=== PATIENT | female | born 1990 | race Caucasian/White ===

== ENCOUNTER → 2016-12-10 | Outpatient (CLI) | payer OTHER ==
[~2016-12-10] MED LIST: ABILIFY15 MG PO; ALBUTEROL0.09 MG/A2 IH; AMOXIL400 MG/5 M PO; AMPHETAMINE SAL20 MG PO; AUGMENTIN 875875 MG PO; BACTRIM DS 8001 TA1 PO; BIAXIN500 MG PO; BUSPIRONE HCL10 MG PO; BUSPIRONE10 MG PO; CHEWABLE VITE1 CTB PO; CIPRO500 MG PO; CLARITIN10 MG PO; CLINDAMYCIN HC300 MG PO; CORTISPORIN 1%-10 M1 OT; DARVOCET N 1001 TAB PO; DIAZEPAM10 MG PO; DOXYCYCLINE MO100 MG PO; DOXYCYCLINE100 M2 PO; ELIMITE 5%60 GM PO; FLEXERIL10 MG PO; FLINTSTONES1 CTB PO; FLONASE 0.05% 121 EA NAS; GOOD NEIGHBOR150 MG PO; HYDROCODONE BIT1 T11 PO; KEFLEX250 MG/5 M PO; KEFLEX500 MG PO; LEXAPRO5 M1 PO; MEDROL DOSEPAK4 MG PO; METHERGINE0.2 MG PO; MUCINEX DM 30 M1 TE1 PO; NAPROSYN500 MG PO; OMEPRAZOLE DR20 MG PO; OMEPRAZOLE20 MG PO; OVRAL-21 50 MCG1 TAB PO; PAROXETINE HCL10 MG PO; PENICILLIN-VK500 M1 PO; PEPCID20 MG PO; PERCOCET 325 MG1 TA2 PO; PERCOCET 325 MG1 TA5 PO; PHENERGAN W/ DE30 ML PO; PHENERGAN W/DM120 ML PO; PHENERGAN25 M1 PO; PRENATAL 191 CTB PO; PRILOSEC20 MG PO; PROAIR HFA0.09 MG/AC IH; PROTONIX40 MG PO; PROVENTIL0.09 MG/AC IH; Percocet 325 MG1 TAB PO; REGLAN10 MG PO; SINGULAIR10 MG PO; TRAMADOL HCL50 MG PO; TRAMADOL50 MG PO; TYLENOL CH160 MG/51 PO; ULTRAM50 MG PO; VICODIN 5/500 505 MG PO; VITAMINS W/IRON1 CT1 PO; XANAX0.25 MG PO; XANAX0.5 MG; ZANTAC 150150 MG PO; ZANTAC150 MG PO; ZITHROMAX Z PA250 MG PO; ZITHROMAX250 MG PO; Zithromax200 MG/5 M PO; Zofran4 MG PO
== END | disposition home or self-care (01) ==
LOC: LAB 15:13
DX: Z33.1 Pregnant state, incidental (principal)

== ENCOUNTER 2017-12-29 20:10 | Emergency (ER) | payer OTHER ==
[~2017-12-29] VITALS: Ht 154.9 cm; Wt 145.1 kg
== END 2017-12-29 20:44 | disposition home or self-care (01) ==
LOC: ED 20:10
DX: K08.89 Other specified disorders of teeth and supporting structures (principal); Z88.8 Allergy status to other drugs, medicaments and biological substances

== ENCOUNTER 2018-08-10 21:31 | Emergency (ER) | payer OTHER ==
[~2018-08-10] VITALS: Ht 154.9 cm; Wt 147.9 kg
[2018-08-10] MEDS ORDERED: IRON325 M1 PO (21:56)
[2018-08-10] MEDS ORDERED: METFORMIN HYDR500 MG PO (21:57)
[2018-08-10] MEDS ORDERED: OMEPRAZOLE D/R20 MG PO (21:57)
[2018-08-10] MEDS ORDERED: VENTOLIN 02.5 MG/3 M INH (21:57)
[2018-08-10] MEDS ORDERED: VITAMIN D350000 UNIT PO (21:57)
[2018-08-10] MEDS ORDERED: GOOD NEIGHBOR L10 MG PO (21:58)
[2018-08-10] MEDS ORDERED: PROVENTIL HFA6.7 GM INH (21:58)
== END 2018-08-10 23:01 | disposition home or self-care (01) ==
LOC: ED 21:31
DX: S81.812A Laceration without foreign body, left lower leg, initial encounter (principal); F17.200 Nicotine dependence, unspecified, uncomplicated; Z88.8 Allergy status to other drugs, medicaments and biological substances; Z91.048 Other nonmedicinal substance allergy status; Z88.6 Allergy status to analgesic agent; Z88.5 Allergy status to narcotic agent; Z79.899 Other long term (current) drug therapy; Z79.84 Long term (current) use of oral hypoglycemic drugs; W25.XXXA Contact with sharp glass, initial encounter; Y93.89 Activity, other specified; Y92.89 Other specified places as the place of occurrence of the external cause; Y99.8 Other external cause status

== ENCOUNTER 2018-10-11 12:54 | Emergency (ER) | payer OTHER ==
[~2018-10-11] VITALS: Ht 167.6 cm; Wt 145.1 kg
[~2018-10-11 12:54] MED LIST changes: +GOOD NEIGHBOR L10 MG PO; +IRON325 M1 PO; +METFORMIN HYDR500 MG PO; +OMEPRAZOLE D/R20 MG PO; +PROVENTIL HFA6.7 GM INH; +VENTOLIN 02.5 MG/3 M INH; +VITAMIN D350000 UNIT PO
[2018-10-11] MEDS ORDERED: AMOXICILLIN500 M2 PO (13:41)
[2018-10-11] MEDS ORDERED: FLONASE ALLERG9.9 ML NAS (13:41)
== END 2018-10-11 13:55 | disposition home or self-care (01) ==
LOC: ED 12:54
DX: J02.9 Acute pharyngitis, unspecified (principal); J01.90 Acute sinusitis, unspecified; H92.03 Otalgia, bilateral; Z88.8 Allergy status to other drugs, medicaments and biological substances; Z88.6 Allergy status to analgesic agent; Z79.899 Other long term (current) drug therapy

== ENCOUNTER → 2019-04-09 | Outpatient (CLI) | payer OTHER ==
[~2019-04-09] MED LIST changes: +AMOXICILLIN500 M2 PO; +FLONASE ALLERG9.9 ML NAS
[2019-04-09 09:44] LABS: BASO # 0.1 10*3/uL (0.0-0.1); BASO % 0.5 % (0.0-1.0); EOS # 0.3 10*3/uL (0.0-0.4); EOS % 2.4 % (1.0-4.0); HEMOGLOBIN 12.2 g/dl (12.0-16.0); LYMPH # 2.7 10*3/uL (1.3-4.4); MEAN CELL VOLUME 85.8 fl (81.0-99.0); MEAN CORPUSCULAR HGB 26.2 pg (27.0-31.0); MEAN CORPUSCULAR HGB CONC 30.5 g/dl (33.0-37.0); MEAN PLATELET VOLUME 9.4 fl (9.6-12.3); MONO # 0.8 10*3/uL (0.1-1.0); MONO % 7.1 % (3.0-9.0); NEUT % 64.6 % (47.0-73.0); PLATELET COUNT AUTOMATED 354 10*3/uL (130-400); RED BLOOD COUNT 4.66 10*6/uL (4.10-5.10); RED CELL DISTRI WIDTH 15.8 % (0-14.5); WHITE BLOOD COUNT 10.8 10*3/uL (4.8-10.8)
[2019-04-09 10:23] LABS: ALBUMIN 3.1 gm/dl (3.1-4.5); BUN 12 mg/dl (7-24); CHLORIDE 109 mmol/L (98-107); CHOLESTEROL 171 mg/dL (<200); POTASSIUM 4.1 mmol/L (3.5-5.1); SGOT/AST 21 IU/L (3-35); SGPT/ALT 33 U/L (12-78); SODIUM 140 mmol/L (136-145); TOTAL PROTEIN 7.5 gm/dL (6.4-8.2)
[2019-04-09 10:30] LABS: ALKALINE PHOSPHATASE 70 U/L (45-117); HDL CHOLESTEROL 38 mg/dl (40-60); IRON 57 ug/dL (50-170); LDL CHOLESTEROL 109 mg/dL (9-159); TOTAL IRON BINDING CAPACITY 346 ug/dl (250-450); TRIGLYCERIDES 120 mg/dl (<150); VLDL CHOLESTEROL 24 mg/dL (6-40)
[2019-04-09 10:50] LABS: PTH INTACT 79.7 pg/mL (18.5-88.0)
[2019-04-12 06:32] LABS: TESTOSTERONE FREE, (DIRECT) 4.2 pg/mL (0.0-4.2)
== END | disposition home or self-care (01) ==
LOC: LAB 09:16
PROVIDERS: Nurse Practitioner Family
DX: M25.511 Pain in right shoulder (principal); E55.9 Vitamin D deficiency, unspecified; E88.81 Metabolic syndrome and other insulin resistance; E28.2 Polycystic ovarian syndrome; D50.8 Other iron deficiency anemias; I10 Essential (primary) hypertension

== ENCOUNTER → 2019-04-15 | Outpatient (CLI) | payer OTHER | END | disposition home or self-care (01) | LOC: RAD 14:08 | DX: M54.5 Low back pain (principal) ==

== ENCOUNTER → 2019-08-19 | Outpatient (CLI) | payer OTHER | END | disposition home or self-care (01) | LOC: US 09:30 | DX: N92.1 Excessive and frequent menstruation with irregular cycle (principal) ==

== ENCOUNTER → 2019-10-20 | Outpatient (CLI) | payer OTHER ==
[2019-10-20 12:06] LABS: BASO % 0.2 % (0.0-1.0); EOS # 0.4 10*3/uL (0.0-0.4); EOS % 3.2 % (1.0-4.0); HEMATOCRIT 36.4 % (37.0-47.0); LYMPH # 3.3 10*3/uL (1.3-4.4); LYMPH % 26.2 % (27.0-41.0); MEAN CELL VOLUME 79.1 fl (81.0-99.0); MEAN CORPUSCULAR HGB 22.8 pg (27.0-31.0); MEAN CORPUSCULAR HGB CONC 28.8 g/dl (33.0-37.0); MEAN PLATELET VOLUME 8.7 fl (9.6-12.3); MONO # 0.9 10*3/uL (0.1-1.0); MONO % 7.1 % (3.0-9.0); NEUT # 7.8 10*3/uL (2.3-7.9); NEUT % 62.7 % (47.0-73.0); PLATELET COUNT AUTOMATED 396 10*3/uL (130-400); RED CELL DISTRI WIDTH 16.5 % (0-14.5); WHITE BLOOD COUNT 12.5 10*3/uL (4.8-10.8)
[2019-10-20 12:36] LABS: ALKALINE PHOSPHATASE 66 U/L (45-117); BUN 9 mg/dl (7-24); CHLORIDE 109 mmol/L (98-107); CREATININE 0.73 mg/dL (0.55-1.02); HDL CHOLESTEROL 37 mg/dl (40-60); IRON 113 ug/dL (50-170); POTASSIUM 4.1 mmol/L (3.5-5.1); SGOT/AST 19 IU/L (3-35); SGPT/ALT 24 U/L (12-78); SODIUM 140 mmol/L (136-145); TOTAL IRON BINDING CAPACITY 352 ug/dl (250-450); TOTAL PROTEIN 7.3 gm/dL (6.4-8.2); TRIGLYCERIDES 110 mg/dl (<150); VLDL CHOLESTEROL 22 mg/dL (6-40)
[2019-10-20 12:41] LABS: CHOLESTEROL 176 mg/dL (<200); LDL CHOLESTEROL 117 mg/dL (9-159)
[2019-10-20 13:33] LABS: FERRITIN 9.2 ng/mL (10.0-291.0); VITAMIN D, 25-HYDROXY 36.6 ng/mL (30-100)
[2019-10-22 11:09] LABS: TESTOSTERONE FREE, (DIRECT) 2.4 pg/mL (0.0-4.2)
== END | disposition home or self-care (01) ==
LOC: LAB 11:38
PROVIDERS: Nurse Practitioner Family
DX: K21.9 Gastro-esophageal reflux disease without esophagitis (principal); I10 Essential (primary) hypertension; E55.9 Vitamin D deficiency, unspecified; G47.61 Periodic limb movement disorder; E88.81 Metabolic syndrome and other insulin resistance; D50.8 Other iron deficiency anemias; N93.8 Other specified abnormal uterine and vaginal bleeding; E78.1 Pure hyperglyceridemia; E66.01 Morbid (severe) obesity due to excess calories; C92.10 Chronic myeloid leukemia, BCR/ABL-positive, not having achieved remission; Z68.44 Body mass index [BMI] 60.0-69.9, adult

== ENCOUNTER 2020-09-08 16:11 | Emergency (ER) | payer OTHER ==
[~2020-09-08] VITALS: Ht 154.9 cm; Wt 145.1 kg
== END 2020-09-08 22:43 | disposition home or self-care (01) ==
LOC: ED 16:11
DX: S63.92XA Sprain of unspecified part of left wrist and hand, initial encounter (principal); Z79.899 Other long term (current) drug therapy; Z88.8 Allergy status to other drugs, medicaments and biological substances; X58.XXXA Exposure to other specified factors, initial encounter; Y93.89 Activity, other specified; Y92.89 Other specified places as the place of occurrence of the external cause; Y99.8 Other external cause status

== ENCOUNTER 2020-12-13 20:13 | Emergency (ER) | payer OTHER ==
[~2020-12-13] VITALS: Ht 154.9 cm; Wt 158.8 kg
== END 2020-12-13 22:15 | disposition home or self-care (01) ==
LOC: ED 20:13
DX: F41.0 Panic disorder [episodic paroxysmal anxiety] (principal); Z88.6 Allergy status to analgesic agent; Z88.8 Allergy status to other drugs, medicaments and biological substances; Z88.5 Allergy status to narcotic agent; Z79.2 Long term (current) use of antibiotics; Z79.899 Other long term (current) drug therapy; Z98.890 Other specified postprocedural states

== ENCOUNTER 2021-04-03 08:16 | Emergency (ER) | payer OTHER ==
[~2021-04-03] VITALS: Ht 154.9 cm; Wt 145.1 kg
[2021-04-03] MEDS ORDERED: PAXIL20 M1 PO (08:27)
[2021-04-03] MEDS ORDERED: ADDERALL 20 MG20 MG PO (08:27)
[2021-04-03] MEDS ORDERED: APRESOLINE25 MG PO (08:28)
[2021-04-03] MEDS ORDERED: HYDROCODONE-AC1 EAC1 PO (11:15)
[2021-04-03] MEDS ORDERED: CLEOCIN HCL150 MG PO (11:15)
== END 2021-04-03 13:17 | disposition home or self-care (01) ==
LOC: ED 08:16
DX: K08.89 Other specified disorders of teeth and supporting structures (principal); Z88.8 Allergy status to other drugs, medicaments and biological substances; Z79.899 Other long term (current) drug therapy

== ENCOUNTER 2021-10-05 15:16 | Emergency (ER) | payer OTHER ==
[~2021-10-05] VITALS: Ht 154.9 cm; Wt 146.5 kg
[~2021-10-05 15:16] MED LIST changes: +ADDERALL 20 MG20 MG PO; +APRESOLINE25 MG PO; +CLEOCIN HCL150 MG PO; +HYDROCODONE-AC1 EAC1 PO; +PAXIL20 M1 PO
[2021-10-05] MEDS ORDERED: METHOCARBAMOL750 M1 PO (21:22)
[2021-10-05] MEDS ORDERED: NAPROXEN250 MG PO (21:22)
== END 2021-10-05 21:29 | disposition home or self-care (01) ==
LOC: ED 15:16
DX: R51.9 Headache, unspecified (principal); R07.81 Pleurodynia; I10 Essential (primary) hypertension; F17.200 Nicotine dependence, unspecified, uncomplicated; Z88.8 Allergy status to other drugs, medicaments and biological substances; Z88.6 Allergy status to analgesic agent; Z88.1 Allergy status to other antibiotic agents; Z79.899 Other long term (current) drug therapy; Z98.890 Other specified postprocedural states; V43.52XA Car driver injured in collision with other type car in traffic accident, initial encounter; Y93.89 Activity, other specified; Y92.89 Other specified places as the place of occurrence of the external cause; Y99.8 Other external cause status

== ENCOUNTER 2022-02-11 11:47 | Emergency (ER) | payer OTHER ==
[~2022-02-11] VITALS: Ht 154.9 cm; Wt 151.0 kg
[~2022-02-11 11:47] MED LIST changes: +METHOCARBAMOL750 M1 PO; +NAPROXEN250 MG PO
[2022-02-11 12:29] LABS: BILIRUBIN Negative (Negative); BLOOD 3+ (Negative); CLARITY Clear (Clear); COLOR Yellow (Yellow); GLUCOSE Negative (Negative); KETONE Negative (Negative); LEUKO ESTERASE Trace (Negative); NITRITE Negative (Negative); PH 5.5 (4.5-8.0); UROBILINOGEN 0.2 E.U./dl (0.0-1.0)
[2022-02-11 12:29] LABS: BASO # 0.1 10*3/uL (0.0-0.1); BASO % 0.3 % (0.0-1.0); EOS # 0.1 10*3/uL (0.0-0.4); EOS % 0.6 % (1.0-4.0); HEMATOCRIT 42.5 % (37.0-47.0); LYMPH # 3.8 10*3/uL (1.3-4.4); LYMPH % 22.6 % (27.0-41.0); MEAN CELL VOLUME 83.3 fl (81.0-99.0); MEAN CORPUSCULAR HGB 25.9 pg (27.0-31.0); MEAN CORPUSCULAR HGB CONC 31.1 g/dl (33.0-37.0); MEAN PLATELET VOLUME 8.8 fl (9.6-12.3); MONO # 1.2 10*3/uL (0.1-1.0); MONO % 7.1 % (3.0-9.0); NEUT # 11.4 10*3/uL (2.3-7.9); NEUT % 68.9 % (47.0-73.0); PLATELET COUNT AUTOMATED 402 10*3/uL (130-400); RED CELL DISTRI WIDTH 16.7 % (0-14.5); WHITE BLOOD COUNT 16.6 10*3/uL (4.8-10.8)
[2022-02-11 12:37] LABS: RBC TNTC rbc/hpf (0-2)
[2022-02-11 12:38] LABS: BACTERIA 2+
[2022-02-11 12:48] LABS: ALKALINE PHOSPHATASE 79 U/L (45-117); BUN 8 mg/dl (7-24); CHLORIDE 107 mmol/L (98-107); POTASSIUM 3.9 mmol/L (3.5-5.1); SGPT/ALT 27 U/L (12-78); SODIUM 138 mmol/L (136-145); TOTAL PROTEIN 8.2 gm/dL (6.4-8.2)
[2022-02-11] MEDS ORDERED: CIPRO500 MG PO (14:49)
== END 2022-02-11 14:52 | disposition home or self-care (01) ==
LOC: ED 11:47
PROVIDERS: Physician Assistant
DX: N12 Tubulo-interstitial nephritis, not specified as acute or chronic (principal); Z88.8 Allergy status to other drugs, medicaments and biological substances; Z79.899 Other long term (current) drug therapy; Z98.890 Other specified postprocedural states

== ENCOUNTER → 2022-06-19 | Outpatient (CLI) | payer OTHER | END | disposition home or self-care (01) | LOC: RAD 10:30 | PROVIDERS: ATTEND Nurse Practitioner Family | DX: R05.9 Cough, unspecified (principal); R06.2 Wheezing ==

== ENCOUNTER → 2022-11-27 | Outpatient (CLI) | payer OTHER | END | disposition home or self-care (01) | LOC: RAD 14:37 | PROVIDERS: ATTEND Nurse Practitioner Family | DX: M79.641 Pain in right hand (principal); M79.89 Other specified soft tissue disorders ==

== ENCOUNTER 2023-02-05 17:49 | Emergency (ER) | payer OTHER ==
[~2023-02-05] VITALS: Ht 154.9 cm; Wt 142.9 kg
[2023-02-05] MEDS ORDERED: AMOX-CLAV 875-1 EACH PO (19:25)
== END 2023-02-05 20:07 | disposition home or self-care (01) ==
LOC: ED 17:49
DX: K04.7 Periapical abscess without sinus (principal); R11.0 Nausea; R19.7 Diarrhea, unspecified; J02.9 Acute pharyngitis, unspecified; R09.81 Nasal congestion; R51.9 Headache, unspecified; K21.9 Gastro-esophageal reflux disease without esophagitis; J45.909 Unspecified asthma, uncomplicated; F41.9 Anxiety disorder, unspecified; F31.9 Bipolar disorder, unspecified; Z88.8 Allergy status to other drugs, medicaments and biological substances; Z98.890 Other specified postprocedural states; F17.290 Nicotine dependence, other tobacco product, uncomplicated

== ENCOUNTER → 2023-04-23 | Outpatient (CLI) | payer OTHER ==
[~2023-04-23] MED LIST changes: +AMOX-CLAV 875-1 EACH PO
[2023-04-23 10:14] LABS: BASO % 0.4 % (0.0-1.0); EOS # 0.2 10*3/uL (0.0-0.4); EOS % 1.9 % (1.0-4.0); HEMATOCRIT 45.5 % (37.0-47.0); LYMPH # 2.6 10*3/uL (1.3-4.4); LYMPH % 25.7 % (27.0-41.0); MEAN CELL VOLUME 87.7 fl (81.0-99.0); MEAN CORPUSCULAR HGB CONC 30.8 g/dl (33.0-37.0); MEAN PLATELET VOLUME 9.2 fl (9.6-12.3); MONO # 0.9 10*3/uL (0.1-1.0); MONO % 9.3 % (3.0-9.0); NEUT # 6.3 10*3/uL (2.3-7.9); NEUT % 62.5 % (47.0-73.0); PLATELET COUNT AUTOMATED 297 10*3/uL (130-400); RED BLOOD COUNT 5.19 10*6/uL (4.10-5.10); RED CELL DISTRI WIDTH 15.9 % (0-14.5); WHITE BLOOD COUNT 10.1 10*3/uL (4.8-10.8)
== END | disposition home or self-care (01) ==
LOC: LAB 09:47
PROVIDERS: ATTEND Nurse Practitioner Women's Health
DX: N92.6 Irregular menstruation, unspecified (principal); R53.83 Other fatigue

== ENCOUNTER → 2023-04-26 | Outpatient (CLI) | payer OTHER | END | disposition home or self-care (01) | LOC: US 00:53 | PROVIDERS: ATTEND Nurse Practitioner Women's Health | DX: N85.8 Other specified noninflammatory disorders of uterus (principal); N92.6 Irregular menstruation, unspecified; R53.83 Other fatigue ==

== ENCOUNTER → 2023-06-17 | Day surgery (SDC) | payer OTHER ==
[~2023-06-17] VITALS: Ht 154.9 cm; Wt 142.9 kg
[~2023-06-17] MED LIST changes: +Ketamine Hydrochloride 50 MG/5 ML SYRINGE IV ONE; +Lidocaine Hydrochloride 2% 10 ML AMP IM ONE; +Midazolam Hydrochloride 2 MG/2 ML VIAL IV ONE; +Midazolam Hydrochloride 2 MG/2 ML VIAL ONE; +Midazolam Hydrochloride 5 MG/5 ML VIAL IV ONE; +PROPOFOL 200 MG/20 ML VIAL IV ONE; +SODIUM CHLORIDE 0.9% 1,000 ML IV ONE; +SODIUM CHLORIDE 0.9% 1,000 ML IV SCH
[2023-06-17 07:30] VITALS: BP 118/72
[2023-06-17 09:13] VITALS: BP 120/68
[2023-06-17 09:27] VITALS: BP 138/72
[2023-06-17 09:43] VITALS: BP 120/63
== END | disposition home or self-care (01) ==
LOC: SDC 06-14 13:15
PROVIDERS: ATTEND Obstetrics & Gynecology
DX: N93.9 Abnormal uterine and vaginal bleeding, unspecified (principal); N85.8 Other specified noninflammatory disorders of uterus; N85.00 Endometrial hyperplasia, unspecified; E11.9 Type 2 diabetes mellitus without complications; J45.909 Unspecified asthma, uncomplicated; K21.9 Gastro-esophageal reflux disease without esophagitis; F41.9 Anxiety disorder, unspecified; F31.9 Bipolar disorder, unspecified; E66.01 Morbid (severe) obesity due to excess calories; I10 Essential (primary) hypertension; Z98.891 History of uterine scar from previous surgery; Z98.890 Other specified postprocedural states; Z79.899 Other long term (current) drug therapy; Z88.5 Allergy status to narcotic agent; Z88.2 Allergy status to sulfonamides; Z88.8 Allergy status to other drugs, medicaments and biological substances; Z82.3 Family history of stroke; Z83.3 Family history of diabetes mellitus; Z82.49 Family history of ischemic heart disease and other diseases of the circulatory system

== ENCOUNTER → 2024-08-12 | Outpatient (CLI) | payer MEDICARE, MEDICAID ==
[~2024-08-12] MED LIST changes: -Ketamine Hydrochloride 50 MG/5 ML SYRINGE IV ONE; -Lidocaine Hydrochloride 2% 10 ML AMP IM ONE; -Midazolam Hydrochloride 2 MG/2 ML VIAL IV ONE; -Midazolam Hydrochloride 2 MG/2 ML VIAL ONE; -Midazolam Hydrochloride 5 MG/5 ML VIAL IV ONE; -PROPOFOL 200 MG/20 ML VIAL IV ONE; -SODIUM CHLORIDE 0.9% 1,000 ML IV ONE; -SODIUM CHLORIDE 0.9% 1,000 ML IV SCH
[2024-08-12 13:00] LABS: VITAMIN D, 25-HYDROXY 24.9 ng/mL (30-100)
== END | disposition home or self-care (01) ==
LOC: RHCWE 11:06
PROVIDERS: ATTEND Nurse Practitioner Family
DX: I10 Essential (primary) hypertension (principal); J30.9 Allergic rhinitis, unspecified; K21.9 Gastro-esophageal reflux disease without esophagitis; E55.9 Vitamin D deficiency, unspecified; D50.8 Other iron deficiency anemias

== ENCOUNTER → 2024-12-03 | Outpatient (CLI) | payer MEDICARE, MEDICAID ==
[2024-12-03 11:25] LABS: BASO # 0.0 10*3/uL (0.0-0.1); BASO % 0.4 % (0.0-1.0); EOS # 0.1 10*3/uL (0.0-0.4); EOS % 1.2 % (1.0-4.0); MEAN CELL VOLUME 91.9 fl (81.0-99.0); MEAN CORPUSCULAR HGB 29.5 pg (27.0-31.0); MEAN PLATELET VOLUME 9.4 fl (9.6-12.3); MONO # 0.8 10*3/uL (0.1-1.0); MONO % 7.1 % (3.0-9.0); NEUT # 7.3 10*3/uL (2.3-7.9); NEUT % 68.1 % (47.0-73.0); NUCLEATED RED BLOOD CELL 0.0 % (0.0-0.0); NUCLEATED RED BLOOD CELL 0.0 10*3/uL (0.0-0.0); PLATELET COUNT AUTOMATED 317 10*3/uL (130-400); RED CELL DISTRI WIDTH 14.0 % (0-14.5)
[2024-12-03 11:57] LABS: BUN 11 mg/dl (9-23); LDL CHOLESTEROL 114 mg/dL (9-159); SGPT/ALT 20 U/L (5-49)
== END | disposition home or self-care (01) ==
LOC: LAB 10:19
PROVIDERS: Nurse Practitioner Family; ATTEND Internal Medicine Critical Care Medicine
DX: I10 Essential (primary) hypertension (principal); K21.9 Gastro-esophageal reflux disease without esophagitis; E11.9 Type 2 diabetes mellitus without complications; J30.9 Allergic rhinitis, unspecified; E55.9 Vitamin D deficiency, unspecified; D50.8 Other iron deficiency anemias; E66.01 Morbid (severe) obesity due to excess calories

== ENCOUNTER 2024-12-20 15:38 | Emergency (ER) | payer MEDICARE, MEDICAID ==
[~2024-12-20] VITALS: Ht 154.9 cm; Wt 142.9 kg
== END 2024-12-20 18:08 | disposition home or self-care (01) ==
LOC: ED 15:38
DX: S96.911A Strain of unspecified muscle and tendon at ankle and foot level, right foot, initial encounter (principal); F41.9 Anxiety disorder, unspecified; I10 Essential (primary) hypertension; K21.9 Gastro-esophageal reflux disease without esophagitis; J45.909 Unspecified asthma, uncomplicated; F31.9 Bipolar disorder, unspecified; Z88.1 Allergy status to other antibiotic agents; Z88.5 Allergy status to narcotic agent; Z88.8 Allergy status to other drugs, medicaments and biological substances; Z98.890 Other specified postprocedural states; W01.0XXA Fall on same level from slipping, tripping and stumbling without subsequent striking against object, initial encounter; Y93.89 Activity, other specified; Y92.89 Other specified places as the place of occurrence of the external cause; Y99.8 Other external cause status